=== PATIENT | female | born 1985 | race Caucasian/White ===

== ENCOUNTER → 2020-11-29 04:39 | Outpatient (REF) | payer OTHER, SELFPAY ==
[2020-11-29 19:19] LABS: SARS-CoV-2 RNA PCR Negative
== END ==
LOC: ANHCOVIDDT 04:39
DX: Z20.822 Contact with and (suspected) exposure to COVID-19 (principal); R05 Cough; R09.89 Other specified symptoms and signs involving the circulatory and respiratory systems
CPT/HCPCS: C9803; U0003; U0005

== ENCOUNTER → 2020-12-28 11:28 | Outpatient (CLI) | payer OTHER, SELFPAY ==
--- NOTE | ~2020-12-28 | US_ITS ---
EXAMINATION: US pelvic complete w TV DATE: 12/28/2020 12:05 INDICATION: Menorrhagia TECHNIQUE: Multiple transabdominal and endovaginal sonographic images of the pelvis were obtained. COMPARISON: None. FINDINGS: The uterus measures 10.1 x 6.0 x 7.0 cm. There are multiple uterine fibroids. The largest o n the right measures 4.3 x 3.6 x 4.2 cm. The largest on the left measures 5.0 x 4.6 x 4.8 cm. The end ometrial complex measures 13 mm. The right ovary measures 3.3 x 2.5 x 2.9 cm. The left ovary measures 4.6 x 2.4 x 3.1 cm. There is normal vascular flow in the ovaries. There is no free fluid in the pelv is. IMPRESSION: 1. Fibroid uterus. Reviewed, dictated and finalized at location A. IMPRESSION: 1. Fibroid uterus.
== END ==
PROVIDERS: PCP Family Medicine; Visit Provider Nurse Practitioner Family
DX: N92.0 Excessive and frequent menstruation with regular cycle (principal); D25.9 Leiomyoma of uterus, unspecified
CPT/HCPCS: 76830; 76856

== ENCOUNTER → 2021-04-24 10:11 | Outpatient (CLI) | payer OTHER, SELFPAY ==
--- NOTE | ~2021-04-24 | XR_ITS ---
XR abdomen/kub 1V 04/24/2021 10:52 INDICATION: Constipation TECHNIQUE: KUB COMPARISON: None FINDINGS: Bowel gas pattern is normal. Moderate colonic fecal loading. There is no evidence of free a ir, mass, organomegaly, ascites or obstruction. No abnormal calculi are seen. The bones appear inta ct. There is evidence for right-sided tubal ligation. There are cholecystectomy clips. IMPRESSION: 1: No acute abdominal abnormality identified. Reviewed, dictated and finalized at location B. ROLOGY NURSE
== END ==
PROVIDERS: PCP Nurse Practitioner Family; Visit Provider Nurse Practitioner Family
DX: K59.00 Constipation, unspecified (principal)
CPT/HCPCS: 74018

== ENCOUNTER 2021-05-06 | Day surgery (SDC) | payer OTHER, SELFPAY ==
[2021-04-29 08:44] VITALS: BMI 28.8
--- NOTE | 2021-04-29 08:52 | PC.NURSE ---
Report to the Outpatient Waiting Room, entrance under the green pavilion located off [facility], at time 1000 on date 05/06/21. OR Time: 1200. - You will be asked a series of questions to screen for COVID 19 for your protection. - A mask is required within the hospital. - No visitors are allowed at this time. Preoperative COVID Testing Requirements: + MARCH 2021 No COVID Test needed if: (proof is required; if not received patient will have Rapid Test prior to entry) - Patient has received COVID Vaccine at least 14 days prior to procedure date or - Patient has positive COVID test result within last 90 days of surgery date. COVID Test needed if above criteria is not met If not COVID vaccinated a COVID test must be conducted within 72 hours of surgery and patient is asked to isolate self from time of testing until procedure. You will go to the [facility] for your COVID testing. The [facility] is located at the corner of [address] [facility]. You will only be called if COVID results are positive and your surgeon may reschedule your elective surgery date. Patients may have clear liquids (water, carbonated beverages, clear teas, apple juice) until 3 hours prior to surgery with a maximum of 20 ounces. - No food from midnight until time of surgery Take the following medications with a SIP of water the morning of surgery: MEDROXYPROGESTERONE Medications to discontinue per physician: VITAMINS/SUPPLEMENTS Date to take last dose: 05/02/21 Please no make-up, nail thai, hairspray, perfume, deodorant, or body powder the day of surgery. No jewelry (including any body piercings) or valuables the day of surgery, leave them at home. Please take a shower or bath the night before, or the morning of, surgery with an antibacterial soap. Wear comfortable, loose fitting clothing. - Jewelry must be removed prior to entering the operating room. Rings and piercings that are not removed may be cut off. - The hospital will not accept responsibility for valuables. - Please leave all valuables, including medications, at home the day of surgery. If you are going home after surgery, a licensed dedicated regional driver must drive you home. - NO public transportation without another adult. - We recommend that an adult stay with you for 24 hours following discharge. - We also recommend that you do not drive, make important decision, drink alcoholic beverages, or take any drugs that were not prescribed by your health care provider for at least 24 hours after your discharge time. Follow any additional instructions given to you from your surgeon. Telephone instructions given to LIBERTAD KENNEY and asked if any additional questions and then verbalized understanding. Patient advised to call surgeon office or pre surgery nurse liaison [phone] if any additional questions.
--- NOTE | 2021-05-03 08:26 | P.HP_ITS ---
H&P: HPI History of Present Illness Date/Time: 05/03/21 08:26 monthly cycles lasting 7-14 days and very heavy. O ral progestin helped somewhat, but she's opting for definitive therapy for heavy bleeding and fibroids. She has severe cramping on periods but no other pelvic pain Chief Complaint: menorrhagia, fibroids Review of Systems Review of Systems: All systems reviewed & are unremarkable except as noted in HPI and below PMFSH Past Medical History Medical History Asthma Encounter for Essure implantation Encounter for removal of Essure could only find 1 essure Migraines Vaginal delivery x2 Surgical History Surgical History History of bilateral salpingectomy 2015 History of cholecystectomy 2008 History of sinus surgery 2011, 2012, roto-rooter Family History Family History Son Asthma Grandparent Asthma Leukemia Social History Social History Smoking status: Never smoker Alcohol intake: never Substance use: never Substance use type: does not use Spiritual care concerns: No Meds Home Medications and Allergies Home Medications Medication Instructions Recorded Confirmed Type biotin 1 mg capsule 1 mg PO DAILY 01/30/21 04/29/21 History lactobacillus combination no.9 4 4,000,000 cell PO DAILY 01/30/21 04/29/21 History billion cell capsule magnesium oxide 500 mg tablet 500 mg PO DAILY 01/30/21 04/29/21 History medroxyprogesterone 10 mg tablet 10 mg PO DAILY #90 tablet 01/30/21 04/29/21 Rx erenumab-aooe 70 mg/mL 70 mg SUBCUT MONTHLY 03/11/21 04/29/21 History subcutaneous auto-injector eletriptan 40 mg tablet 40 mg PO ONCE 04/24/21 04/29/21 History lactulose [Enulose] 15 ml PO BID 04/29/21 04/29/21 History Allergies Allergy/AdvReac Type Severity Reaction Status Date / Time No Known Allergies Allergy Unknown Verified 04/29/21 08:42 Exam Const: General: healthy appearing, no acute distress and alert Resp: Auscultation: clear to auscultation bilaterally Cardio: Rate: regular rate Rhythm: regular rhythm GI: Inspection: non-distended GI Palp: Yes Soft to palpation and Yes Tenderness to palpation present (GI) : Bimanual exam- vagina & uterus: uterine mobility normal, non-tender, enlarged and soft Bimanual Exam- Adnexa, other: normal adnexae, no masses and No adnexal tenderness Extrem: General: no pedal edema and no calf tenderness Psych: Mental Status: mental status grossly normal Assessment and Plan Assessment and plan (1) Menorrhagia: Code(s): N92.0 - Excessive and frequent menstruation with regular cycle Status: Acute Assessment and Plan: She opted and signed consent for TLH after risks, benefits, complications, and alternatives discussed. Her tubes have already been removed, and we're planning to leave ovaries in place assuming they look normal. She expressed understanding and wishes to proceed (2) Leiomyoma: Code(s): D21.9 - Benign neoplasm of connective and other soft tissue, unspecified Status: Acute
[2021-05-06] VITALS (11 sets, daily range): BP systolic 94–109; BP diastolic 63–80; PULSE 48–89; RESP 14–18; TEMP 36.3–36.8; O2SAT 94–100
[2021-05-06] MEDS: ACETAMINOPHEN 500 MG TABLET 1000 MG PO (10:33)
[2021-05-06] MEDS: LACTATED RINGERS 1,000 ML 30 ML IV CONT ×2 (10:40→13:46)
[2021-05-06] MEDS: KETOROLAC 15 MG/ML VIAL (*BKC) IV PUSH (10:50)
--- NOTE | 2021-05-06 10:58 | WPDANESEPPF ---
Anes - Initial Pre Proc Eval Procedure: Operation Date: 05/06/21 12:00 Proposed Procedures p Total Laparoscopic Hysterectomy - Sandi Johnson MD Date/Time: 05/06/21 10:58 Surgeon: Sandi Johnson MD Pre Op Diagnosis: menorrhaghia,fibroids Patient Data Age: 35 Gender: F Height: 1.73 m Weight: 86.8 kg Last Vital Signs Temp 36.3 C L 05/06/21 10:51 Pulse 72 05/06/21 10:51 Resp 16 05/06/21 10:51 BP 109/74 05/06/21 10:51 Pulse Ox 100 05/06/21 10:51 Allergies Allergy/AdvReac Type Severity Reaction Status Date / Time No Known Allergies Allergy Unknown Verified 05/06/21 10:29 Home Medications Medication Instructions Recorded Confirmed Type biotin 1 mg capsule 1 mg PO DAILY 01/30/21 05/06/21 History lactobacillus combination no.9 4 4,000,000 cell PO DAILY 01/30/21 05/06/21 History billion cell capsule magnesium oxide 500 mg tablet 500 mg PO DAILY 01/30/21 05/06/21 History medroxyprogesterone 10 mg tablet 10 mg PO DAILY #90 tablet 01/30/21 05/06/21 Rx erenumab-aooe 70 mg/mL 70 mg SUBCUT MONTHLY 03/11/21 05/06/21 History subcutaneous auto-injector eletriptan 40 mg tablet 40 mg PO ONCE 04/24/21 05/06/21 History lactulose [Enulose] 15 ml PO BID 04/29/21 05/06/21 History Patient hx anesthesia problems: none Family hx anesthesia problems: none Results Review: All pre-operative results and documents have been reviewed as part of the pre-operative evaluation. [facility] Past Medical History Medical History Asthma Encounter for Essure implantation Encounter for removal of Essure could only find 1 essure Migraines Vaginal delivery x2 Surgical History Surgical History History of bilateral salpingectomy 2016 History of cholecystectomy 2009 History of sinus surgery 2011, 2013, roto-rooter Family History Family History Son Asthma Grandparent Asthma Leukemia Social History Social History Smoking status: Never smoker Alcohol intake: never Substance use: never Substance use type: does not use Living arrangements: with family Spiritual care concerns: No Anes - Eval Final PreProcedure Day of Procedure 05/06/21 10:58 Patient weight: overweight Heart: regular rate and rhythm Lungs: clear to auscultation Airway: Mallampati scale class II Neurological: alert and oriented Last oral intake: >/= 8 hours ASA classification: II Emergent: no Anesthetic plan: proceed Anesthesia type and monitoring: general ETT and standard monitoring Results Review: All pre-operative results and documents have been reviewed as part of the pre-operative evaluation. Informed Consent: The patient's anesthetic plan and its attendant risks and benefits were discussed with the patient/family/POA. Questions were solicited and answers provided to the satisfaction of the patient/family/POA.
--- NOTE | 2021-05-06 11:09 | WPDHPUPDATE1 ---
History and Physical Update Update Date/Time: 05/06/21 11:09 History and Physical has been reviewed, including an updated exam of the patient. There are NO changes in the patient's condition. Risks, benefits, and alternatives have been discussed and questions answered. Patient agrees to proceed with procedure.
--- NOTE | 2021-05-06 11:56 | W.PM.PROC2 ---
Procedure Note - Detailed Date of Procedure 05/06/21 Pre-op Diagnosis menorrhagia,fibroids Post-op Diagnosis same Procedure Performed [facility] Surgeon Sandi Johnson MD Anesthesia general Indications Heavy periods, did not respond well to hormonal therapy, fibroids Findings Enlarged fibroid uterus, absent fallopian tubes, normal bilateral ovaries Description of Procedure She was taken to the operating room where general anesthesia was obtained. She was prepared and draped in the normal sterile fashion in the dorsal lithotomy position. Marcaine was injected infraumbilically. 5 mm skin incision was made in the infraumbilical fold. A 5 mm non bladed trocar was placed with the camera in the trocar under direct visualization into the peritoneal cavity. Insufflation was begun, and she was placed in Trendelenburg. Inspection of pelvis revealed the findings as noted above. A 5 mm trocar was placed in the left lower quadrant under direct visualization, and a 11 mm trocar in the right lower quadrant. The right utero-ovarian ligament was grasped coagulated and transected using the Harmonic scalpel with excellent hemostasis visualized. The right round ligament was then divided. The bladder flap was created from the right side. The left utero-ovarian ligament was then grasped, coagulated, and transected, as was the round ligament on the left side. The bladder flap was created from the left side, meeting the flap created from the right. The bladder was pushed down further with a Kittner. The right uterine artery was skeletonized, clamped coagulated and transected using the Harmonic scalpel with excellent hemostasis visualized. Another couple bites were taken down the broad ligament below the level of the uterosacral ligament had been reached. The left uterine artery was then clamped and coagulated. Several more bites were taken down the broad ligament to the level of the uterosacral ligament had been reached. Both uterosacral ligaments were divided below. A sponge stick was placed in the vagina and pressed against the anterior cul-de-sac. The Harmonic scalpel was used to make an anterior colpotomy incision against the sponge stick. The vagina was then circumferentially incised, hugging the cervix. Once the cervix and uterus were free from the surrounding vaginal tissue, the cervix and uterus were pressed down as far as possible into the vaginal canal. Attention was then turned to the vagina. Speculum was placed in the vagina. The cervix was grasped with a single-tooth tenaculum. Gentle traction was applied. The larger body of the uterus was then grasped with a towel clamp. With gentle traction, the uterus and cervix were brought easily through the vagina intact. A moist blue towel was placed in the vagina to help hold in pneumoperitoneum. Attention was turned back to the abdomen. The vaginal cuff was inspected. There were few bleeding points which were easily controlled using the Harmonic scalpel. The vaginal cuff was then closed using 0 Vicryl interrupted sutures. A total of 6 sutures were used for reapproximation. Pelvis was copiously irrigated. All operative sites were found to be hemostatic. The right lower quadrant trocar was removed. A Deny-Daniel device along with an 0 Vicryl was used to close the fascia of the right lower quadrant incision. The pneumoperitoneum was allowed to escape. All trocars were removed. All 3 skin incisions were closed using 4 0 Monocryl in subcuticular fashion. She tolerated the procedure well. Sponge, lap, needle, and instrument counts were correct x2. She was taken to the recovery room in stable condition. Estimated Blood Loss 200 Drains Yes (Cross) Packing No Pathology yes Complications No immediate complications Condition stable Disposition PACU
[2021-05-06] MEDS: ceFAZolin 2 GM/D5W 50 ML 2 GM/50 ML BAG IVPB (11:58)
[2021-05-06] MEDS: BUPIVACAINE/EPINEPHRINE 0.5% 30 ML VIAL INFILTRATE (12:40)
[2021-05-06] MEDS: fentaNYL CITRATE INJ (*CRX) 100 MCG/2 ML VIAL 25 MCG IV PUSH ×2 (14:10→14:49)
--- NOTE | 2021-05-06 15:21 | ADMGEN ---
1502-This patient, Ava Chapman, was admitted to OB 2nd Floor Room 288-00. Patient oriented to hospital policies and general routines including ID bracelet, bed and alarms, visiting hours, pain management, procedures, bathroom and other care routines, personal items, smoking policy, room service/diet, and visiting hours. Information on how to activate the Rapid Response Team has been discussed. Patient is encouraged to report perceived risks to care and to ask questions if they do not understand what they are told or what they should do.
[2021-05-06] MEDS: DEXTROSE 5%/LACTATED RINGERS 1,000 ML 125 ML IV CONT (15:33)
[2021-05-06] MEDS: KETOROLAC 30 MG/ML VIAL (*BKC) IV PUSH (17:49)
[2021-05-06] MEDS: HYDROcodone/acetaminophen (*CRX) 5-325 MG TABLET 1 TAB PO ×2 (19:03→23:52)
[2021-05-06] MEDS: ENOXAPARIN 40 MG/0.4 ML SYRINGE SUB-Q (19:03)
[2021-05-06] MEDS: SIMETHICONE 80 MG TAB.CHEW PO (19:10)
[2021-05-07 04:30] VITALS: BP 98/52; PULSE 76; RESP 18; TEMP 36.8
[2021-05-07] MEDS: IBUPROFEN 600 MG TABLET PO ×2 (05:28→12:53)
[2021-05-07 05:43] LABS: Basophils Percent Auto 0.4 % (0.2-1.2); Eosinophils Absolute Auto 0.1 K/mm3 (0-0.3); Hematocrit 32.5 % (37.0-47.0); Hemoglobin 11.2 g/dL (12.0-15.0); Immature Granulocyte Absolute 0.03 K/mm3 (0.00-0.031); Immature Granulocyte Percent A 0.4 % (0-0.5); Lymphocytes Absolute Auto 1.93 K/mm3 (0.9-3.2); Lymphocytes Percent Auto 26.4 % (18.3-44.2); Mean Corpuscular HGB Conc 34.5 g/dl (32-36); Mean Corpuscular Hemoglobin 29.2 pg (26-34); Mean Corpuscular Volume 84.6 fl (80-100); Mean Platelet Volume 10.6 fl (7.4-10.4); Monocytes Absolute Auto 0.5 K/mm3 (0.1-0.6); Monocytes Percent Auto 6.6 % (2.6-8.5); Neutrophils Absolute Auto 4.8 K/mm3 (1.3-6.7); Neutrophils Percent Auto 65.2 % (45.5-73.1); Platelet Count Result 233 k/mm3 (150-375); Red Blood Count 3.84 M/mm3 (4.2-5.4); Red Cell Distribution Width 13.9 % (11.5-14.5); White Blood Count 7.3 K/mm3 (4.5-10.0)
[2021-05-07 05:55] LABS: Anion Gap 3 mmol/L (8-16); Blood Urea Nitrogen 8 mg/dL (7-17); Calcium 8.4 mg/dL (8.4-10.2); Carbon Dioxide 24 mmol/L (22-30); Chloride 108 mmol/L (98-107); Estimated CRCL calculation 110 ml/min; Estimated Glomerular Filt Rate > 60; Glucose 97 mg/dL (65-110); Potassium 3.8 mmol/L (3.4-5.0); Sodium 135 mmol/L (137-145)
[2021-05-07] MEDS: LACTULOSE 20 GM/30 ML UDC 10 GM PO (07:08)
[2021-05-07 07:50] VITALS: BP 103/73; PULSE 69; RESP 18; TEMP 36.6; O2SAT 100
--- NOTE | 2021-05-07 08:42 | WPDANESPN ---
Anes - Prog Note Post-Op Date/Time: 05/07/21 08:42 Cardiovascular status: normal Respiratory status: normal Airway patency: baseline Mental status: baseline Post-Op hydration status: normal Vital Signs: Last Vital Signs Temp 98 F 05/07/21 07:50 Pulse 69 05/07/21 07:50 Resp 18 05/07/21 07:50 BP 103/73 05/07/21 07:50 Pulse Ox 100 05/07/21 07:50 Pain Score (VAS): 04/08 I/O: Intake & Output 05/06/21 05/07/21 05/07/21 23:59 07:59 15:59 Intake Total 609 5200 Output Total 300 5050 600 Balance 309 150 -600 Laboratory Tests 05/07/21 05:11 05/07/21 05:11 05/07/21 05/07/21 05:11 05:11 WBC 7.3 RBC 3.84 L Hgb 11.2 L Hct 32.5 L MCV 84.6 MCH 29.2 MCHC 34.5 RDW 13.9 Plt Count 233 MPV 10.6 H Immature Gran % (Auto) 0.4 Neut % (Auto) 65.2 Lymph % (Auto) 26.4 [place] % (Auto) 6.6 Eos % (Auto) 1.0 Baso % (Auto) 0.4 Lymph # (Auto) 1.93 [place] # (Auto) 0.5 Eos # (Auto) 0.1 Baso # (Auto) 0.0 Abs Immat Gran (auto) 0.03 Absolute Neuts (auto) 4.8 Absolute Nucleated RBC 0.0 Nucleated RBC % 0.0 Sodium 135 L Potassium 3.8 Chloride 108 H Carbon Dioxide 24 Anion Gap 3 L BUN 8 Creatinine 0.70 Estim Creat Clear Calc 110 Estimated GFR > 60 Glucose 97 Calcium 8.4 Post-procedural complaints: none Patient Feedback: Patient satisfied with anesthetic care.
--- NOTE | 2021-05-07 12:24 | PM.DS ---
DS: Admitting Diagnosis Discharge Date 05/07/2021 Admitting Diagnosis Menorrhagia, fibroids DS: Discharge Diagnosis Discharge Diagnosis (1) Menorrhagia: Code(s): N92.0 - Excessive and frequent menstruation with regular cycle Status: Acute (2) Leiomyoma: Code(s): D21.9 - Benign neoplasm of connective and other soft tissue, unspecified Status: Acute DS: Summary Hospital Course Hospital Course: She was admitted 05/06 for planned TLH. Surgery was uneventful without complications. Postoperative course has been uneventful. She is meeting all postoperative milestones and wishes to be discharged home. She will go home with follow up and medications as listed. Status at Discharge Functional status at discharge: independent ambulation Overall status at discharge: patient is progressing back to baseline Time Spent with Patient Time attestation: Total time spent providing and/or coordinating discharge services: Time spent: Less than 30 minutes DS: Data Data Completed and Pending Pending studies at discharge: Pending at discharge 05/06/21 13:07 Surgical [PTH] Routine Labs on day of discharge: Labs from last 24 hours 05/07/21 05/07/21 05:11 05:11 WBC 7.3 RBC 3.84 L Hgb 11.2 L Hct 32.5 L MCV 84.6 MCH 29.2 MCHC 34.5 RDW 13.9 Plt Count 233 MPV 10.6 H Immature Gran % (Auto) 0.4 Neut % (Auto) 65.2 Lymph % (Auto) 26.4 [place] % (Auto) 6.6 Eos % (Auto) 1.0 Baso % (Auto) 0.4 Lymph # (Auto) 1.93 [place] # (Auto) 0.5 Eos # (Auto) 0.1 Baso # (Auto) 0.0 Abs Immat Gran (auto) 0.03 Absolute Neuts (auto) 4.8 Absolute Nucleated RBC 0.0 Nucleated RBC % 0.0 Sodium 135 L Potassium 3.8 Chloride 108 H Carbon Dioxide 24 Anion Gap 3 L BUN 8 Creatinine 0.70 Estim Creat Clear Calc 110 Estimated GFR > 60 Glucose 97 Calcium 8.4 Discharge Plan Discharge Patient Disposition: Home, Self-Care Follow-up/Referrals: Sandi Johnson MD [Physician] - 1 Week Discharge Medications: New hydrocodone-acetaminophen 5-325 mg Tablet 1 tablet PO Q4H PRN (Reason: Pain Rated 5 Or Less) Qty: 30 RF: 0 ibuprofen 600 mg Tablet 600 mg PO Q6H PRN (Reason: Cramping) Qty: 60 RF: 0 Continued magnesium oxide 500 mg tablet 500 mg PO DAILY RF: 0 biotin 1 mg capsule 1 mg PO DAILY RF: 0 Adult 50 Plus Probiotic 4 billion cell capsule 4,000,000 cell PO DAILY RF: 0 Aimovig Autoinjector 70 mg/mL auto-injector 70 mg subcut MONTHLY RF: 0 eletriptan 40 mg tablet 40 mg PO ONCE RF: 0 lactulose [Enulose] 10 gram/15 mL solution 15 ml PO BID RF: 0 Discontinued medroxyprogesterone 10 mg tablet 10 mg PO DAILY Qty: 90 RF: 0 AMG Discharge Billing Observation Discharge Observation Discharge: 25467 OBS Care D/C
--- NOTE | 2021-05-07 12:47 | PM.GYNPNOP ---
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 Postoperative Procedures: Procedures Operation Date: 05/06/21 12:00 Actual Procedure Side Surgeon p Total Laparoscopic Hysterectomy Not Applicable Sandi Johnson MD Postoperative day: 1 (s/p hysterectomy) Postoperative status: doing well Postoperative plan: routine post-op care and discharge (and follow up in office in 1 week) Time Spent With Patient Time: Total time spent is greater than 50% in coordination of care (as documented) at patient's floor/unit and/or counseling patient: Time with patient: less than 15 minutes L[employer]ING [employer] INSTALLER- PN:Subj Post-Op Subjective Date/time seen: 05/07/21 12:47 Subjective: patient has no complaints, pain is well controlled and other (Tolerating regular diet. + flatus. Voiding without problems) Exam Const: General: no acute distress Resp: Auscultation: clear to auscultation bilaterally Cardio: Rate: regular rate Rhythm: regular rhythm GI: Inspection: non-distended and incision (Intact without erythema, drainage, or induration) GI Palp: Yes abdominal tenderness (appropriate) and Yes Soft to palpation Extrem: General: no edema L[employer]ING [employer] INSTALLER - PN: Obj Data Vital Signs Vital Signs: Vital Signs - 24 hr 05/06/21 13:46 05/06/21 14:00 05/06/21 14:15 Temperature 36.3 C L Pulse Rate 55 L 55 L 48 L Respiratory Rate 14 16 16 Blood Pressure 102/69 102/79 108/80 Pulse Oximetry 94 100 98 05/06/21 14:30 05/06/21 14:45 05/06/21 14:57 Temperature Pulse Rate 67 57 L 63 Respiratory Rate 16 16 16 Blood Pressure 100/64 106/71 103/72 Pulse Oximetry 99 99 95 05/06/21 15:20 05/06/21 18:45 05/06/21 23:00 Temperature 36.3 C L 36.8 C 36.7 C Pulse Rate 54 L 89 73 Respiratory Rate 16 18 18 Blood Pressure 102/63 109/65 94/63 L Pulse Oximetry 95 05/06/21 23:45 05/07/21 04:30 05/07/21 07:50 Temperature 36.8 C 36.6 C Pulse Rate 76 76 69 Respiratory Rate 18 18 18 Blood Pressure 100/65 98/52 L 103/73 Pulse Oximetry 100 Intake/Output Intake/Output: Intake & Output 05/04/21 05/05/21 05/06/21 05/07/21 23:59 23:59 23:59 23:59 Intake Total 6914 5200 Output Total 300 5014 Balance 1159 -450 Meds/Results Medications: Active Medications Generic Name Dose Route Start Last Admin Trade Name Freq PRN Reason Stop Dose Admin Hydrocodone Bitart/Acetaminophen 1 tab 05/06/21 15:03 05/06/21 23:52 Hydrocodone/Acetaminophen (*Crx) 5-325 Mg Tablet PO 1 tab Q3H PRN Administration Pain Rated 5 or Less Hydrocodone Bitart/Acetaminophen 1 tab 05/06/21 15:03 Hydrocodone/Acetaminophen (*Crx) 10-325 Mg Tablet PO Q3H PRN Pain Rated 6 or Greater Enoxaparin Sodium 40 mg 05/06/21 20:00 05/06/21 19:03 Enoxaparin 40 Mg/0.4 Ml Syringe SUB-Q 40 mg Q24H PHOEBE Administration Ibuprofen 600 mg 05/06/21 15:03 05/07/21 05:28 Ibuprofen 600 Mg Tablet PO 600 mg Q6H PRN Administration Cramping Ketorolac Tromethamine 30 mg 05/06/21 15:03 05/06/21 17:49 Ketorolac 30 Mg/Ml Vial (*Bkc) IV PUSH 05/11/21 15:02 30 mg Q6H PRN Administration Pain Rated 4-6 Lactulose 10 gm 05/06/21 17:00 05/07/21 07:08 Lactulose 20 Gm/30 Ml Udc PO 10 gm BID PHOEBE Administration Metoclopramide HCl 10 mg 05/06/21 15:03 Metoclopramide Hcl Inj 10 Mg/2 Ml Vial IV PUSH Q6H PRN Nausea Morphine Sulfate 4 mg 05/06/21 15:03 Morphine Sulfate (*Crx) 4 Mg/Ml Inj IV PUSH Q4H PRN Pain Rated 7-10 Naloxone HCl 0.1 mg 05/06/21 15:03 Naloxone Hcl 0.4 Mg/Ml Vial IV PUSH Q2M PRN Respiratory rate less than 10 Non-Formulary Medication 40 mg 05/07/21 15:03 Eletriptan PO 05/07/21 15:04 ONCE ONE Non-Formulary Medication 70 mg 06/05/21 09:00 Erenumab-Aooe [Aimovig Autoinjector] SUB-Q 07/05/21 08:59 MONTHLY PHOEBE Non-Formulary Medication 4,000,000 cell 05/07/21 09:00 Lactobacillus Combination No.9 [Adult 50 Plus Probiotic] PO 06/06/21 08:59 DAILY PHOEBE Non-Formulary Medication 500 mg 02
[2021-05-07] MEDS: SIMETHICONE 80 MG TAB.CHEW PO (12:53)
== END 2021-05-07 14:00 | disposition home or self-care (01) ==
LOC: ANHSURGERY 10:08 → ANHOB2 18:17
PROVIDERS: PCP Nurse Practitioner Family; Visit Provider Obstetrics & Gynecology
PROC: 0UT9FZZ Resection of Uterus, Via Natural or Artificial Opening With Percutaneous Endoscopic Assistance (ICD-10-PCS; CPT 58572; principal; 2021-05-06 12:00)
DX: N92.0 Excessive and frequent menstruation with regular cycle (principal); N80.0 Endometriosis of uterus; D25.1 Intramural leiomyoma of uterus; D25.2 Subserosal leiomyoma of uterus
CPT/HCPCS: 58572; 36415; 80048; 85025; 88307; 99199; A9270; J0690; J1100; J1650; J1885; J2250; J2405; J2704; J3010; J7030; J7120; J7121